=== PATIENT | male | born 1960 | race Caucasian/White ===

== ENCOUNTER 2016-03-22 13:23 | Emergency (ER) | payer OTHER ==
[2016-03-22 14:57] LABS: BASOPHILS 0.3 % (0.0-2.0); EOSINOPHILS 2.1 % (0-7); HEMOGLOBIN 14.8 g/dL (13.5-17.5); IMMATURE GRANULOCYTES 0.5 % (0-5); LYMPHOCYTES 25.9 % (15-50); MCH 33.6 pg (26.0-34.0); MCHC 35.2 g/dL (31.0-37.0); MCV 95.5 fL (80.0-100.0); MEAN PLATELET VOLUME 9.9 fL (7.4-10.4); MONOCYTES 6.3 % (2-11); NEUTROPHILS 64.9 % (40-80); PLATELET COUNT 203 10x3/uL (130-400); RDW 13.1 % (11.5-14.5); WBC 6.3 10x3/uL (4.8-10.8)
[2016-03-22 15:12] LABS: ALBUMIN 3.3 g/dL (3.4-5.0); ALKALINE PHOSPHATASE 52 U/L (46-116); ALT (SGPT) 14 U/L (10-68); BILIRUBIN - TOTAL 0.35 mg/dL (0.2-1.3); CALC OSMOLALITY 281 mosm/kg (275-300); CALCIUM 9.2 mg/dL (8.5-10.1); CARBON DIOXIDE 27.7 mmol/L (21.0-32.0); CHLORIDE - SERUM 106 mmol/L (98-107); GLUCOSE 114 mg/dL (74-106); POTASSIUM - SERUM 3.5 mmol/L (3.5-5.1); PROTEIN - SERUM 6.4 g/dL (6.4-8.2); SODIUM 142 mmol/L (136-145); UREA NITROGEN 7 mg/dL (7-18); eGFR NON AFRICAN AMERICAN 82 mL/min (90-120)
[2016-03-22 15:24] LABS: CHOL - HDL RATIO 6.6 ratio (2.3-4.9); CHOLESTEROL, TOTAL 185 mg/dL (0-200); CKMB 0.6 U/L (0.0-3.6); CREATINE KINASE 35 UL (21-232); HDL CHOLESTEROL 28 mg/dL (32-96); LDL CHOLESTEROL 91 mg/dL (0-100); LDL-HDL RATIO 3.3 ratio (1.5-3.5); TRIGLYCERIDE 332 mg/dL (30-200)
[2016-03-22 15:25] LABS: TROPONIN-I < 0.017 ng/mL (0.000-0.060)
[2016-05-23 22:36] VITALS: BMI 32.5
== END 2016-03-22 17:24 | disposition home or self-care (01) ==
LOC: D.ER 13:23
PROVIDERS: Emergency Medicine
DX: R07.9 Chest pain, unspecified (principal); J44.9 Chronic obstructive pulmonary disease, unspecified; I25.10 Atherosclerotic heart disease of native coronary artery without angina pectoris; M54.5 Low back pain; F32.9 Major depressive disorder, single episode, unspecified; Z85.048 Personal history of other malignant neoplasm of rectum, rectosigmoid junction, and anus; F17.200 Nicotine dependence, unspecified, uncomplicated

== ENCOUNTER 2016-03-25 11:47 | Emergency (ER) | payer OTHER ==
[2016-03-25 12:13] LABS: BASOPHILS 0.2 % (0.0-2.0); EOSINOPHILS 1.4 % (0-7); HEMATOCRIT 46.2 % (42.0-54.0); HEMOGLOBIN 16.1 g/dL (13.5-17.5); IMMATURE GRANULOCYTES 0.6 % (0-5); LYMPHOCYTES 22.5 % (15-50); MCHC 34.8 g/dL (31.0-37.0); MCV 97.7 fL (80.0-100.0); MEAN PLATELET VOLUME 10.2 fL (7.4-10.4); MONOCYTES 5.7 % (2-11); NEUTROPHILS 69.6 % (40-80); PLATELET COUNT 180 10x3/uL (130-400); RBC 4.73 10x6/uL (4.20-6.10); RDW 13.3 % (11.5-14.5); WBC 6.7 10x3/uL (4.8-10.8)
[2016-03-25 12:44] LABS: ALBUMIN 3.5 g/dL (3.4-5.0); ALKALINE PHOSPHATASE 59 U/L (46-116); ALT (SGPT) 16 U/L (10-68); CALC OSMOLALITY 279 mosm/kg (275-300); CALCIUM 8.9 mg/dL (8.5-10.1); CARBON DIOXIDE 27.7 mmol/L (21.0-32.0); CHLORIDE - SERUM 105 mmol/L (98-107); GLUCOSE 133 mg/dL (74-106); PROTEIN - SERUM 6.3 g/dL (6.4-8.2); SODIUM 141 mmol/L (136-145); UREA NITROGEN 5 mg/dL (7-18); eGFR NON AFRICAN AMERICAN 82 mL/min (90-120)
[2016-03-25 12:56] LABS: CKMB 0.5 U/L (0.0-3.6); CREATINE KINASE 48 UL (21-232); TROPONIN-I < 0.017 ng/mL (0.000-0.060)
[2016-05-23 22:36] VITALS: BMI 32.5
== END 2016-03-25 14:39 | disposition home or self-care (01) ==
LOC: D.ER 11:47
PROVIDERS: Emergency Medicine Emergency Medical Services
DX: I20.8 Other forms of angina pectoris (principal); R07.9 Chest pain, unspecified; I25.10 Atherosclerotic heart disease of native coronary artery without angina pectoris; M54.5 Low back pain; J44.9 Chronic obstructive pulmonary disease, unspecified; F32.9 Major depressive disorder, single episode, unspecified; Z85.048 Personal history of other malignant neoplasm of rectum, rectosigmoid junction, and anus

== ENCOUNTER 2016-03-27 13:34 | Emergency (ER) | payer OTHER ==
[2016-03-27 15:35] LABS: ALBUMIN 3.3 g/dL (3.4-5.0); ALKALINE PHOSPHATASE 51 U/L (46-116); ALT (SGPT) 14 U/L (10-68); BILIRUBIN - TOTAL 0.12 mg/dL (0.2-1.3); CALC OSMOLALITY 287 mosm/kg (275-300); CALCIUM 8.7 mg/dL (8.5-10.1); CARBON DIOXIDE 25.1 mmol/L (21.0-32.0); CHLORIDE - SERUM 109 mmol/L (98-107); CHOL - HDL RATIO 5.6 ratio (2.3-4.9); CHOLESTEROL, TOTAL 169 mg/dL (0-200); CKMB 1.9 U/L (0.0-3.6); CREATINE KINASE 55 UL (21-232); CREATININE - SERUM 1.1 mg/dL (0.6-1.3); GLUCOSE 118 mg/dL (74-106); HDL CHOLESTEROL 30 mg/dL (32-96); POTASSIUM - SERUM 4.4 mmol/L (3.5-5.1); PRO BNP 53 pg/mL (0-125); SODIUM 145 mmol/L (136-145); TRIGLYCERIDE 408 mg/dL (30-200); UREA NITROGEN 8 mg/dL (7-18); eGFR NON AFRICAN AMERICAN 73 mL/min (90-120)
[2016-03-27 15:37] LABS: TROPONIN-I < 0.017 ng/mL (0.000-0.060)
[2016-03-27 15:45] LABS: HEMATOCRIT 41.3 % (42.0-54.0); MCH 33.5 pg (26.0-34.0); MCHC 33.9 g/dL (31.0-37.0); MCV 98.8 fL (80.0-100.0); MEAN PLATELET VOLUME 10.1 fL (7.4-10.4); PLATELET COUNT 132 10x3/uL (130-400); RBC 4.18 10x6/uL (4.20-6.10); RDW 13.7 % (11.5-14.5); WBC 5.9 10x3/uL (4.8-10.8)
[2016-03-27 15:46] LABS: BASOPHILS 0.2 % (0.0-2.0); EOSINOPHILS 3.8 % (0-7); IMMATURE GRANULOCYTES 0.7 % (0-5); LYMPHOCYTES 30.5 % (15-50); MONOCYTES 6.6 % (2-11); NEUTROPHILS 58.2 % (40-80)
[2016-05-23 22:36] VITALS: BMI 32.5
== END 2016-03-27 16:45 | disposition left against medical advice (07) ==
LOC: D.ER 13:34
PROVIDERS: Emergency Medicine
DX: R07.9 Chest pain, unspecified (principal); F17.200 Nicotine dependence, unspecified, uncomplicated

== ENCOUNTER 2016-05-23 17:23 | Observation (INO) | payer MEDICAID ==
[~2016-05-23] VITALS: Ht 175.3 cm; Wt 100.0 kg
--- NOTE | ~2016-05-23 | HEMODYNAMI ---
PATIENT:KAREEM PERALTA MEDICAL RECORD: [id number] : 58 [facility] [id number] ADMISSION DATE: 05/23/16 Generatedon:05/24/20169:44 Patient name: KAREEM PERALTA Patient #: [id number] SSN: : 1960 Date of study: 05/24/2016 Page: Of Hemodynamic Procedure Report Patient Data Patient Demographics Procedure consent was obtained First Name: KAREEM Gender: Male Last Name: KATHRYN : 1960 Middle Initial: R Age: 55 year(s) Patient #: [id number] Race: Unknown Additional ID: [id number] Contact details [address]: [address] [place] [address] rd State: [place] City: [place] Zip code: [address] Past Medical History Allergies Allergen Reaction Date Comments Reported Penicillins 05/24/2016 Toradol 05/24/2016 Stadol 05/24/2016 Other allergy 05/24/2016 compazine, reglan, avelox Admission Admission Data Admission Date: 05/23/2016 Admission Time: 19:26 Admit Source: Emergency department Room #: D.2121 Lab Results Lab Result Date: 05/24/2016 Lab Result Time: 0:00 Biochemistry Name Units Result Min Max BUN mg/dl 16 --(---*)-- 7 18 Creatinine mg/dl 1.3 --(---*)-- 0.6 1.3 CBC Name Units Result Min Max Hemoglobin g/dl 15.1 --(-*--)-- 13.5 17.5 Procedure Procedure Types Cath Procedure Diagnostic Procedure LHC LHC w/Coronaries Miscellaneous Procedures Moderate Sedation up to 15 minutes Procedure Description Procedure Date Procedure Date: 05/24/2016 Procedure Start Time: 9:29 Procedure End Time: 9:38 Procedure Staff Name Function Robel Parks MD Performing Physician Usha Bess RT Scrub Ellen Millard RN Nurse Jose Mcmillan RT Monitor Procedure Data Cath Procedure Fluoroscopy Diagnostic fluoroscopy Total fluoroscopy Time: 1.8 time: 1.8 min min Diagnostic fluoroscopy Total fluoroscopy dose: 505 dose: 505 mGy mGy Contrast Material Contrast Material Type Amount (ml) Isovue 300 74 Entry Location Entry Primary Successful Side Size Upsize Upsize Entry Closure Succes sful Closure Location (Fr) 1 (Fr) 2 (Fr) Remarks Device Remarks Femoral Right 5 Fr Exoseal artery Diagnostic catheters Device Type Used For End Catheter Placement Cordis 5Fr JL 4.0 Left Coronary Catheter (MP) Angiography Cordis 5Fr 3DRC Catheter Right Coronary (MP) Angiography Cordis 5Fr Pigtail LV Angiography Catheter (MP) Procedure Complications No complications Procedure Medications Medication Administration Route Dosage Oxygen NC 2 l/min Heparin Flush Bag added to field 2 bags (1000units/500ml NS) Lidocaine 2% added to field 20 Versed I.V. 1 mg Fentanyl I.V. 50 mcg Versed I.V. 1 mg Fentanyl I.V. 50 mcg Hemodynamics Rest HGB: 15.1 (g/dl) Heart Rate: 56 (bpm) Pressure Samples Time Site Value (mmHg) Purpose Heart Use Rate(bpm) 9:35 LV 121/41,51 EDP 61 9:35 AO 121/82(99) Pullback 56 9:35 LV 126/11,60 Pullback 56 Gradients Valve Time Site 1 Site 2 Mean SEP/DFP Peak To Heart Use (mmHg) (sec/min) Peak Rate (mmHg) (bpm) Aortic 9:35 LV AO 0 3 5 56 126/11,60 121/82(99) Calculations Valve P-P Mean Valve Index Valve Source Name Gradient Area Flow (cm2) Aortic 5 0 5 0 Snapshots Pre Cath Intra NCS Post Cath Vital Signs Time Heart Resp SPO2 etCO2 [id number] NIBP (mmHg) Rhythm Pain Sedation Rate (ipm) (%) (mmHg) (mmHg) Status Level (bpm) 9:14:11 54 16 98 0 0 128/83(115) NSR 0 (11) 10(A) , No pain 9:18:22 54 16 95 0 0 127/84(100) NSR 0 (11) 10(A) , No pain 9:22:36 54 16 96 0 0 117/85(105) NSR 0 (11) 10(A) , No pain 9:26:36 55 18 96 0 0 104/82(97) NSR 0 (11) 10(A) , No pain 9:30:40 56 18 96 0 0 123/82(99) NSR 0 (11) 10(A) , No pain 9:34:52 55 19 96 0 0 123/81(109) NSR 0 (11) 9(A) , No pain 9:39:28 56 18 96 0 0 133/78(115) NSR 0 (11) 9(A) , No pain Medications Time Medication Route Dose Verified Delivered Reason Notes Effect iveness by by 9:23:49 Oxygen NC 2 Robel Ellen Per l/min [place] Millard RN physician 9:23:57 Heparin Flush added 2 Robel Robel used for Bag to bags [facility] procedure (1000units/500ml field MD [place] NS) 9:24:10 Lidocaine 2% added 20ml Robel Robel used for [facility] field MD [place] 9:28:59 Versed I.V. 1 mg [address] [facility] Ac Millard RN sedation 9:29:06 Fentanyl I.V. 50 Robel Ellen for mcg KaseyAc Millard RN sedation 9:32:01 Versed I.V. 1 mg Robel Ellen for [place] Millard RN sedation 9:32:04 Fentanyl I.V. 50 Robel Ellen for mcg [place] Freeman KAUR sedation Procedure Log Time Note 8:58:39 Jose Mcmillan RT(R) sent for patient. Start room use. 8:58:41 Time tracking: Call back 8:58:45 Plan of Care:Hemodynamics will remain stable., Cardiac rhythm will remain stable., Comfort level will be maintained., Respiratory function will remain adequate., Patient/ family verbilizes understanding of procedure., Procedure tolerated without complication., Recovers from procedure without complications.. 8:58:54 Admit Source: Emergency department 9:06:53 Patient received from PCU to CCL 1 Alert and oriented. Tansferred to table in Supine position. 9:06:54 Warm blankets applied, and leeann hugger turned on for patient comfort. 9:06:55 Correct patient and procedure confirmed by team. 9:06:56 Signed procedure consent form obtained from patient. 9:06:57 ECG and BP/O2 sat monitors applied to patient. 9:06:58 Full Disclosure recording started 9:13:01 Vital chart was started 9:18:45 Baseline sample Acquired. 9:18:47 Rhythm: sinus rhythm 9:18:53 H&P Date Dictated: 05/24/2016 Within 30 days and on chart.. 9:18:54 Pre-procedure instructions explained to patient. 9:18:55 Pre-op teaching completed and patient verbalized understanding. 9:18:57 Family unavailable. 9:18:59 Patient NPO since Midnight. 9:19:10 Patient allergic to Penicillins 9:19:21 Patient allergic to Toradol 9:19:31 Patient allergic to Stadol 9:19:54 Patient allergic to Other allergycompazine, reglan, avelox 9:19:56 Is the patient allergic to Iodine/contrast media? No. 9:20:12 Is patient on blood thinner?No 9:20:22 Patient diabetic? No. 9:20:44 ----Pre-sedation anethsthesia assessment.---- 9:20:47 Previous problem with sedation/anesthesia? No ? 9:20:49 Snore? Yes 9:20:50 Sleep apnea? No 9:20:52 Deviated septum? No 9:21:08 Opens mouth fully? Yes 9:21:10 Sticks out tongue? Yes 9:21:21 Airway obstruction? Yes emphyzemia 9:21:25 Dentures? Yes out 9:21:37 Pre procedure: right dorsailis pedis pulse 1+ Palpable, but thready & weak; easily obliterated 9:21:42 Patient pain scale 0/10 ?. 9:21:47 IV patent on arrival in left forearm with 0.9% NaCl at 10ml/hr. 9:22:16 Lab Result : BUN 16 mg/dl 9:22:16 Lab Result : Creatinine 1.3 mg/dl 9:22:16 Lab Result : Hemoglobin 15.1 g/dl 9:22:29 Lab results completed and on chart. 9:22:32 Right groin area was prepped with chlora-prep and draped in sterile fashion 9:22:35 Alarms reviewed by R. N. 9:22:35 Sharps counted by scrub and verified by R.N. 9:22:36 Physician paged 9:23:49 Oxygen 2 l/min NC was given by Ellen Millard RN; Per physician; 9::57 Heparin Flush Bag (1000units/500ml NS) 2 bags added to field was given by Robel Parks MD; used for procedure; 9:24:10 Lidocaine 2% 20ml vial added to field was given by Robel Parks MD; used for procedure; 9::25 Zero performed for pressure channel P1 9::34 --------ALL STOP TIME OUT------ ::34 Final Timeout: patient, procedure, and site verified with staff and physician. All members of the team are in agreement. 9:28:37 Right groin site verified by team. 9::40 Physical assessment completed. ASA score P 2 - A patient with mild systemic disease as per Robel Parks MD. 9:28:45 Sedation plan: IV Moderate Sedation Versed, Fentanyl 9::59 Versed 1 mg I.V. was given by Ellen Millard RN; for sedation; 9:29:03 Use device set Femoral Dx 9:29:04 Acist Syringe opened to sterile field. 9:29:04 Bag Decanter opened to sterile field. 9:29:05 Medline Cath Pack opened to sterile field. 9:29:05 Terumo 5Fr Des Arc Sheath opened to sterile field. 9:29:05 St Travis 260cm J .035 wire opened to sterile field. 9:29:06 Fentanyl 50 mcg I.V. was given by Ellen Millard RN; for sedation; 9:29:07 Acist Hand Control opened to sterile field. 9:29:07 Acist Manifold opened to sterile field. 9:29:08 Diagnostic Infinity 5Fr Multipack catheter opened to sterile field. 9:29:08 Tegaderm 4 x 4 opened to sterile field. 9:29:25 Procedure started. 9:29:36 Local anesthetic to right femoral artery with Lidocaine 2% by Robel Parks MD.INITIAL ACCESS ONLY 9:29:46 A 5 Fr sheath was inserted into the Right Femoral artery 9:30:12 A Cordis 5Fr JL 4.0 Catheter () was advanced over the wire and used for Left Coronary Angiography. 9:30:57 LCA angiography performed. 9:32:01 Versed 1 mg I.V. was given by Ellen Millard RN; for sedation; 9:32:04 Fentanyl 50 mcg I.V. was given by Ellen Millard RN; for sedation; 9:32:29 Catheter removed. 9:32:34 A Cordis 5Fr 3DRC Catheter (MP) was advanced over the wire and used for Right Coronary Angiography. 9:33:57 RCA angiography performed. 9:33:59 Catheter removed. 9:34:06 A Cordis 5Fr Pigtail Catheter (MP) was advanced over the wire and used for LV Angiography. 9:34:10 LV angiography performed. 9:34:13 LV gram done using BRUCE 9:34:15 LV hemodynamics recorded. 9:34:20 Injector settings: Ml/sec: 10, Volume: 20, 9:35:43 EF : 55 % 9:35:53 Catheter removed. 9:36:01 Contrast amount:Isovue 300 74ml. 9:36:09 Sheath removed intact; hemostasis achieved with Exoseal to the Right Femoral artery. 9:36:11 Procedure ended.(Physican Out) 9:36:20 Fluoroscopy time 01.80 minutes. 9:36:25 Fluoroscopy dose: 505 mGy 9:36:25 Flurop Dose total: 505 9:36:26 Sharps counted by scrub and verified by R.N. 9:36:28 Insertion/operative site no bleeding no hematoma. 9:36:31 Post-op/insertion site Right Femoral artery dressed using a 4 x 4 and Tegaderm. 9:36:34 Post right femoral artery:stable 9:36:36 Post Procedure Pulses reassessed and unchanged 9:37:04 Post procedure: right dorsailis pedis pulse 1+ Palpable, but thready & weak; easily obliterated. 9:37:07 Post procedure rhythm: sinus rhythm 9:37:09 Post procedure instruction explained to patient.Patient verbalizes understanding. 9:37:37 Procedure type changed to Cath procedure, Diagnostic procedure, LHC, LHC w/Coronaries, Miscellaneous Procedures, Moderate Sedation up to 15 minutes 9:37:40 Procedure and supply charges have been captured, reviewed, submitted and are correct. 9:37:45 Procedure Complication : No complications 9:38:00 Cordis 5Fr Exoseal opened to sterile field. 9:38:03 Vital chart was stopped 9:38:03 See physician's report for complete and final results. 9:38:04 Report given to PCU. 9:38:08 Patient transfered to PCU with Bed. 9:38:10 Procedure ended. 9:38:10 Full Disclosure recording stopped 9:38:13 End room use (Document Last) Device Usage Item Name Manufacture Quantity Catalog Hospital Part Current Minimal Lo t# / Number Charge Number Stock Stock Serial# Code Acist Acist 1 21774 [id number] 326056 754260 20 Syringe Medical Systems Inc Bag Microtek 1 2002S 200972 71956 965236 5 Decanter Medical Inc. Medline Cardinal 1 [id number] 062638 45608 106514 5 Cath Pack Health Terumo 5Fr Terumo 1 [id number] 471848 242518 611488 [address] [facility] Travis 1 475472 370297 611694 882008 30 260cm J .035 wire Acist Hand Acist 1 14143 925458 636931 790993 5 Control Medical Systems Inc Acist Acist 1 16644 998023 797459 365939 5 Manifold Medical Systems Inc Diagnostic Cardinal 1 [id number] 613068 27830 579033 30 Infinity Health 5Fr Multipack catheter Tegaderm 4 3M 1 1626W 677911 667762 769322 5 x 4 Cordis 5Fr Cardinal 1 956185 5 JL 4.0 Health Catheter (MP) Cordis 5Fr Cardinal 1 [id number] 5 3DRC Health Catheter (MP) Cordis 5Fr Cardinal 1 693355 5 Pigtail Health Catheter (MP) Cordis 5Fr Cardinal 1 EX500 534233 537416 223319 10 [employer] Health Signature Audit Rydal Stage Time Signature Unsigned Intra-Procedure 05/24/2016 Jose Mcmillan 9:44:26 AM RT(R) Signatures Monitor : Jose Mcmillan RT Signature : Date : Time : [facility] [address] [place] [address]
[2016-05-23 18:25] LABS: BASOPHILS 0.2 % (0.0-2.0); EOSINOPHILS 1.2 % (0-7); HEMATOCRIT 42.9 % (42.0-54.0); HEMOGLOBIN 15.1 g/dL (13.5-17.5); IMMATURE GRANULOCYTES 0.4 % (0-5); LYMPHOCYTES 25.8 % (15-50); MCH 35.1 pg (26.0-34.0); MCHC 35.2 g/dL (31.0-37.0); MCV 99.8 fL (80.0-100.0); MEAN PLATELET VOLUME 10.5 fL (7.4-10.4); MONOCYTES 6.1 % (2-11); NEUTROPHILS 66.3 % (40-80); PLATELET COUNT 157 10x3/uL (130-400); RDW 13.9 % (11.5-14.5); WBC 9.1 10x3/uL (4.8-10.8)
[2016-05-23 18:37] LABS: ALBUMIN 3.3 g/dL (3.4-5.0); ALKALINE PHOSPHATASE 48 U/L (46-116); ALT (SGPT) 24 U/L (10-68); BILIRUBIN - TOTAL 0.33 mg/dL (0.2-1.3); CALC OSMOLALITY 286 mosm/kg (275-300); CALCIUM 8.7 mg/dL (8.5-10.1); CARBON DIOXIDE 32.3 mmol/L (21.0-32.0); CHLORIDE - SERUM 104 mmol/L (98-107); CREATININE - SERUM 1.3 mg/dL (0.6-1.3); GLUCOSE 114 mg/dL (74-106); POTASSIUM - SERUM 3.7 mmol/L (3.5-5.1); PROTEIN - SERUM 6.2 g/dL (6.4-8.2); SODIUM 143 mmol/L (136-145); UREA NITROGEN 16 mg/dL (7-18); eGFR NON AFRICAN AMERICAN 61 mL/min (90-120)
[2016-05-23 18:48] LABS: CKMB 1.5 U/L (0.0-3.6); CREATINE KINASE 59 UL (21-232)
[2016-05-23 18:51] LABS: TROPONIN-I < 0.017 ng/mL (0.000-0.060)
[2016-05-23] MEDS ORDERED: PROAIR HFA8.5 GM INH (21:44)
[2016-05-23] MEDS ORDERED: PERCOCET 5-3251 TAB PO (21:45)
[2016-05-23] MEDS ORDERED: CELEXA40 MG PO (21:46)
[2016-05-23] MEDS ORDERED: CATAPRES0.3 MG PO (21:46)
[2016-05-23] MEDS ORDERED: XANAX0.5 MG PO (21:46)
[2016-05-23] MEDS ORDERED: HYDROCHLOROTHIA25 MG PO (21:46)
[2016-05-23] MEDS ORDERED: K-TAB10 MEQ PO (21:47)
[2016-05-23] MEDS ORDERED: CARAFATE1 G PO (21:47)
[2016-05-23] MEDS ORDERED: NORVASC5 MG PO (21:47)
[2016-05-23] MEDS ORDERED: DEPAKOTE500 MG PO ×2 (21:48)
[2016-05-23 22:36] VITALS: BP 146/72; Ht 175.3 cm; Wt 100.0 kg
[2016-05-24 00:30] VITALS: BP 101/62; BP 151/73
[2016-05-24 01:24] LABS: CKMB 1.2 U/L (0.0-3.6); CREATINE KINASE 47 UL (21-232); TROPONIN-I < 0.017 ng/mL (0.000-0.060)
--- NOTE | 2016-05-24 02:15 | NUR ---
PT AMBULATING IN HALLS, VERY TALKATIVE WITH STAFF. STATES FEELING HUNGRY AND WANTING TO GO TO THE VENDING MACHINE FOR A SNACK. EXPLAINED TO THE PT HE IS NPO FOR HEART CATH LATER THIS MORNING, PT VERBALIZES UNDERSTANDING BUT REPORTS HE IS EATING ANYWAY. STATES THE "WORST THAT CAN HAPPEN IS I WILL BE HERE AN EXTRA DAY".
[2016-05-24 04:30] VITALS: BP 131/77; BP 178/68
[2016-05-24 06:33] LABS: CKMB 1.6 U/L (0.0-3.6); CREATINE KINASE 45 UL (21-232)
[2016-05-24 06:34] LABS: TROPONIN-I < 0.017 ng/mL (0.000-0.060)
[2016-05-24 08:14] VITALS: BP 93/61
--- NOTE | 2016-05-24 09:00 | NUR ---
PRE-OPS GIVEN. TO ENTERPRISE INFRASTRUCTURE ARCHITECT BY BED.
--- NOTE | 2016-05-24 09:58 | NUR ---
BACK FROM REGIONAL PROPERTY MANAGER. VS WNL. RIGHT GROIN STABLE WITHOUT BLEEDING OR HEMATOMA NOTED. WILL MONITOR.
--- NOTE | 2016-05-24 11:00 | NUR ---
SPOKE TO DR. NAILS. IF DRIVING SELF HOME, MAY DC 8 HRS POST PROCEDURE.
[2016-05-24] MEDS ORDERED: HYDROCODONE-APA1 TAB PO (11:39)
[2016-05-24 11:44] VITALS: BP 119/68
--- NOTE | 2016-05-24 11:56 | NUR ---
BED REST UP. GROIN STABLE.
--- NOTE | 2016-05-24 14:26 | NUR ---
WILL HOLD DC TILL AM PER DR. NORRIS.
[2016-05-24 15:27] VITALS: BP 107/69
--- NOTE | 2016-05-24 19:15 | NUR ---
INITIAL ROUNDS MADE. PT LYING IN BED WATCHING TV. REQUESTING I CALL THE DOCTOR ASKING FOR MORPHINE BACK AGAIN. I DISCUSSED PROTOCOL WITH PT AND THE NORCO PRN ORDER FOR PAIN. PT REQUESTS NORCO AND GIVEN ORDERED PRN.
[2016-05-24 20:30] VITALS: BP 119/72
--- NOTE | 2016-05-24 21:25 | NUR ---
PT AGAIN REQUESTING MORPHINE SHOT AND WHEN TOLD UNABLE TO GIVE, MED NOT ORDERED FOR HIM, PT AMBULATES DOWNSTAIRS.
--- NOTE | 2016-05-24 21:39 | NUR ---
PT RETURNS TO UNIT, ASKING FOR HIS REG HOME MEDS. EXPLAINED TO PT I HAVE NO ORDER FOR HOME MEDS AND THE PLAN FOR DC EARLY AM. HE DEMANDING BLOOD PRESSURE MED. HIS BLOOD PRESSURE CURRENTLY BELOW PARAMETERS FOR BP MED. I EXPLAINED THIS TO HIM AND HE GETS ANGRY. STARTS BACK TO HIS ROOM, STATES "I WILL NEVER COME BACK TO THIS HOSPITAL" AND SLAMS THE DOOR TO HIS ROOM.
--- NOTE | 2016-05-25 00:27 | NUR ---
OFFICE SYSTEM ANALYST AT BEDSIDE FOR VS, NEEDS ADDRESSED. CALL LIGHT IN REACH. WILL CONT TO MONITOR.
[2016-05-25 00:30] VITALS: BP 147/74
[2016-05-25 04:45] VITALS: BP 133/75
--- NOTE | 2016-05-25 07:40 | NUR ---
REVIEWED DISCHARGE INSTRUCTIONS WITH PT STATES UNDERSTANDING COPY GIVEN TO PT WRITTEN PRESCRIPTION FOR NORCO GIVEN TO PT SALINE LOCK DCD TO LFA WITH 22 GA IV CATH INTACT NO REDNESS OR EDEMA NOTED TO SITE PT DISCHARGED HOME IN STABLE CONDITION WITH ALL PERSONAL BELONGINGS VIA W/C
--- NOTE | 2016-05-25 08:24 | OP ---
PATIENT NAME: KAREEM PERALTA MEDICAL RECORD: [id number] :58 LOCATION:D.M2 D.2121 ADMISSION DATE:05/23/16 SURGEON: JAYESH NAILS MD DATE OF OPERATION: 05/24/2016 Catheterization Report PROCEDURE: Left heart catheterization, selective coronary angiography, right femoral artery approach. CATHETERS: A 5-Azeri sheath, 5/4 left and right Lobo, 5/4 pig. The procedure was well tolerated and the patient returned to land. Sheath was removed. ExoSeal device placed. FINDINGS: Left ventriculography in 30-degree BRUCE view: Normal wall motion and normal systolic function. CORONARY ANATOMY: Left main: Left main is free of disease. LAD: Free of disease in the diagonal system. CIRCUMFLEX: Free of disease in the marginal system. RIGHT CORONARY ARTERY: Dominant artery, gives rise to PDA, free of disease. IMPRESSION: Normal systolic function. Normal coronary anatomy. TRANSINT:[id number] Voice Confirmation ID: [id number] DOCUMENT ID: [id number] JAYESH NAILS MD at 0824 CC: [id number] DICTATION DATE: 05/24/16 1007 SURGICAL SERVICES DIRECTOR: 05/24/16 1038 ADM IN [facility] [address] [place] [address]
--- NOTE | 2016-05-25 08:24 | HP ---
PATIENT: KAREEM PERALTA MEDICAL RECORD: [id number] ACCOUNT: [id number] LOCATION:[address] : [birth year] ADMISSION DATE: 05/23/16 HISTORY AND PHYSICAL EXAMINATION HISTORY OF PRESENT ILLNESS: A 55-year-old gentleman with by his report, known history of coronary artery disease, status post ID in the past times 2, travelling from out of town. He has no history of stents or balloon angioplasty, other intervention ____ ID. He has been having chest pain over the last 2 days, waxing and waning course, intermittent ____ nausea and diaphoresis. We are asked to see his concerning his cardiovascular status. PAST MEDICAL HISTORY: Includes: 1. History of hypertension. 2. Hyperlipidemia. 3. Seizure disorder. MEDICATIONS: Include: Albuterol 2 puffs q.4, amlodipine 5 q. day, Klonopin 0.3 b.i.d., Xanax 0.5, Celexa 40 q. day, Depakote 500 in the morning, ____ in the evening, Percocet 5/325, hydrochlorothiazide, Carafate 1 gram a.c. and h.s. ALLERGIES: COMPAZINE, STADOL, AND REGLAN. SOCIAL HISTORY: He smokes a pack a day. Easily takes care of his ADLs. No set exercise program. REVIEW OF SYSTEMS: The patient reports easy bruising but reports no swollen glands. The patient reports no fever, no night sweats, no significant weight gain, no significant weight loss. No significant exercise tolerance. The patient reports no dry eyes, no irritation, no vision change. Patient reports no difficulty hearing and no ear pain. Patient reports no frequent nose bleeds or nose and sinus problems. Patient reports on arm pain on exertion. No shortness of breath while lying down. No history of heart murmur. Patient reports no cough, no wheezing or coughing up blood. Patient reports no abdominal pain, no vomiting. Normal appetite. No diarrhea and not vomiting blood. No nausea and no constipation. Patient reports no incontinence. No difficulty urinating. No hematuria. No increased frequency. Patient reports no muscle aches. No weakness, no arthralgias, no back pain. No swelling of the extremities. Patient reports no abnormal mole, no jaundice, no rashes. Reports no loss of consciousness. No weakness and no numbness. No seizures, dizziness, or headaches. The patient reports no depression, no sleep disturbance, feeling safe in a relationship and no alcohol abuse. Patient reports on fatigue. Reports no runny nose or sinus pressure. No itching, no hives, and no frequent sneezing. PHYSICAL EXAMINATION: GENERAL: Middle-aged gentleman in no acute distress. VITAL SIGNS: Blood pressure 93/61, pulse 56 and regular. HEENT: Normocephalic and atraumatic. NECK: No JVD or bruit. HEART: Regular. LUNGS: Wolf clear. ABDOMEN: Soft and nontender. EXTREMITIES: Pulses 2+ with no edema. HISTORY AND PHYSICAL [id number] KAREEM PERALTA DIAGNOSTIC DATA: ECG without acute change. IMPRESSION: Acute coronary syndrome, historically known myocardial infarction in the past. PLAN: For angiography, intervention based on above. TRANSINT:[id number] Voice Confirmation ID: [id number] DOCUMENT ID: [id number] JAYESH NAILS MD at 0824 CC: [id number] DICTATION DATE: 05/24/16918 EYE DROPPER ASSEMBLER: 05/24/16 1001 ADM IN [facility] [address] [place] [address]
== END 2016-05-25 07:40 | disposition home or self-care (01) ==
LOC: D.ER 17:23 → D.M2 19:26 → OBSVTIME 19:26 → D.M2 19:26
PROVIDERS: Emergency Medicine; ADMIT Internal Medicine Interventional Cardiology
DX: I24.9 Acute ischemic heart disease, unspecified (principal); I25.2 Old myocardial infarction; I10 Essential (primary) hypertension; E78.5 Hyperlipidemia, unspecified; G40.909 Epilepsy, unspecified, not intractable, without status epilepticus

== ENCOUNTER 2016-06-30 02:34 | Observation (INO) | payer MEDICAID ==
[~2016-06-30] VITALS: Ht 175.3 cm; Wt 102.5 kg
[~2016-06-30 02:34] MED LIST: CARAFATE1 G PO; CATAPRES0.3 MG PO; CELEXA40 MG PO; DEPAKOTE500 MG PO; HYDROCHLOROTHIA25 MG PO; HYDROCODONE-APA1 TAB PO; K-TAB10 MEQ PO; NORVASC5 MG PO; PERCOCET 5-3251 TAB PO; PROAIR HFA8.5 GM INH; XANAX0.5 MG PO
[2016-06-30 04:00] VITALS: BP 126/82
--- NOTE | 2016-06-30 04:47 | NUR ---
RECIEVED TO ROOM [address] [facility] VIA EMS. PT ALERT AND ORIENTED. 02 AT 2 LITER VIA NC. IV TO LEFT AC WITH HEPARIN DRIP AT 10 CC/HR. SITE CLEAN AND DRY. PT ASKING FOR SOMETHING TO DRINK, 240 CC CANNED SODA GIVEN AT PT REQUEST. PT ALSO ASKING FOR PAIN MEDICATION, INFORMED PT THAT I WILL HAVE TO CALL DR NAILS FOR FURTHER ORDERS, PT STTED UNDERSTANDING. PLACED ON TELEMETRY, 86 SR, VITALS OBTAINED AND CURRENTLY STABLE. WILL CONT TO MONITOR.
--- NOTE | 2016-06-30 05:15 | NUR ---
MORPHINE 8 MG AND ZOFRAN 4 MG GIVEN FOR C/O PAIN AND NAUSEA.
--- NOTE | 2016-06-30 05:31 | NUR ---
SPOKE WITH DR NAILS, ORDERS GIVEN TO DC HEPARIN DRIP AND PLACE ON ENROLLMENT ELIGIBILITY REPRESENTATIVE SCHEDULE FOR TODAY AT 1300, NOTIFIED MT SUZANNE. ORDERS ALSO RECIEVED FOR PAIN AND NUASEA MEDICATION. WILL CONT TO MONITOR.
[2016-06-30 05:37] VITALS: BP 126/82; Ht 175.3 cm; Wt 102.5 kg
[2016-06-30 06:22] LABS: ANION GAP 13.1 mmol/L (8-16); CALCIUM 8.6 mg/dL (8.5-10.1); CARBON DIOXIDE 28.3 mmol/L (21.0-32.0); CREATININE - SERUM 1.7 mg/dL (0.6-1.3); POTASSIUM - SERUM 3.4 mmol/L (3.5-5.1)
--- NOTE | 2016-06-30 06:35 | NUR ---
AMBULATING IN [place], GAIT STEADY.
[2016-06-30 07:08] LABS: BASOPHILS 0.3 % (0.0-2.0); EOSINOPHILS 3.6 % (0-7); HEMATOCRIT 47.4 % (42.0-54.0); HEMOGLOBIN 16.5 g/dL (13.5-17.5); IMMATURE GRANULOCYTES 0.1 % (0-5); MCH 34.4 pg (26.0-34.0); MCHC 34.8 g/dL (31.0-37.0); MCV 98.8 fL (80.0-100.0); PLATELET COUNT 147 10x3/uL (130-400); RDW 12.9 % (11.5-14.5); WBC 7.2 10x3/uL (4.8-10.8)
[2016-06-30 07:47] VITALS: BP 110/69
--- NOTE | 2016-06-30 10:05 | NUR ---
IV AND TELEMETRY DCD. DC PLANS GIVEN. UNDERSTANDING VOICED. LEAVING HOSP WITH BROTHER.
--- NOTE | 2016-07-01 12:11 | DS ---
PATIENT:KAREEM PERALTA :58 MEDICAL RECORD: [id number] DISCHARGE SUMMARY ADMISSION DATE: 06/30/16 DISCHARGE DATE: 06/30/16 HOSPITAL COURSE: A 55-year-old gentleman with a history of chest pain, who was actually seen last month and underwent diagnostic angiography, which showed no evidence of obstructive coronary artery disease, transferred from [place] with chest pain, ____ enzymes were negative. Films were reviewed, ECG is normal. No evidence of acute thrombosis. He does have a history of COPD with wheezing and tightness, suspect better demand ischemia for elevation in cardiac enzymes. No role for intervention. A repeat angiography in the near future. Give him 1 dose of steroid, 1 dose of IV antibiotics, discharged home in good condition. FOLLOWUP: Will be with his regular luster repairer in [place]. ACTIVITY: As tolerated. DIET: AHA diet. TRANSINT:[id number] Voice Confirmation ID: [id number] DOCUMENT ID: [id number] JAYESH NAILS MD at 1211 CC: [id number] DICTATION DATE: 06/30/16 08 JAVA APPLICATION ENGINEER: 06/30/16 211 DIS IN 06/30/16 [facility] [address] [place] [address]
== END 2016-06-30 10:06 | disposition home or self-care (01) ==
LOC: D.M2 02:34 → OBSVTIME 04:30 → D.M2 10:06
PROVIDERS: ADMIT Internal Medicine Interventional Cardiology
DX: R07.9 Chest pain, unspecified (principal); J44.9 Chronic obstructive pulmonary disease, unspecified

== ENCOUNTER 2016-12-18 14:32 | Emergency (ER) | payer MEDICAID ==
[2016-06-30 05:37] VITALS: BMI 33.4
[2016-12-18 15:30] LABS: BASOPHILS 0.2 % (0-2); EOSINOPHILS 4.6 % (0-7); HEMATOCRIT 41.9 % (42.0-54.0); HEMOGLOBIN 15.1 g/dL (13.5-17.5); IMMATURE GRANULOCYTES 0.3 % (0-5); MCH 35.6 pg (26.0-34.0); MCV 98.8 fL (80.0-100.0); MEAN PLATELET VOLUME 11.2 fL (7.4-10.4); MONOCYTES 7.1 % (2-11); NEUTROPHILS 66.8 % (40-80); RBC 4.24 10x6/uL (4.20-6.10); RDW 13.5 % (11.5-14.5); WBC 6.5 10x3/uL (4.8-10.8)
[2016-12-18 15:35] LABS: PLATELET COUNT 186 10x3/uL (130-400)
[2016-12-18 15:56] LABS: ALBUMIN 3.2 g/dL (3.4-5.0); ALKALINE PHOSPHATASE 67 U/L (46-116); ALT (SGPT) 13 U/L (10-68); BILIRUBIN - TOTAL 0.21 mg/dL (0.2-1.3); CALC OSMOLALITY 283 mosm/kg (275-300); CALCIUM 9.2 mg/dL (8.5-10.1); CARBON DIOXIDE 31.4 mmol/L (21.0-32.0); CHLORIDE - SERUM 104 mmol/L (98-107); CREATININE - SERUM 1.4 mg/dL (0.6-1.3); POTASSIUM - SERUM 3.9 mmol/L (3.5-5.1); PROTEIN - SERUM 6.4 g/dL (6.4-8.2); SODIUM 141 mmol/L (136-145); UREA NITROGEN 18 mg/dL (7-18); eGFR NON AFRICAN AMERICAN 55 mL/min (90-120)
[2016-12-18 15:59] LABS: GLUCOSE 113 mg/dL (74-106)
[2016-12-18 16:08] LABS: CKMB 2.7 U/L (0.0-3.6); CREATINE KINASE 101 UL (21-232)
[2016-12-18 16:09] LABS: TROPONIN-I < 0.017 ng/mL (0.000-0.060)
== END 2016-12-18 16:53 | disposition home or self-care (01) ==
LOC: D.ER 14:32
PROVIDERS: Emergency Medicine
DX: R07.89 Other chest pain (principal); F17.200 Nicotine dependence, unspecified, uncomplicated; J44.9 Chronic obstructive pulmonary disease, unspecified

== ENCOUNTER 2018-12-20 21:49 | Observation (INO) | payer MEDICAID ==
[~2018-12-20] VITALS: Ht 175.3 cm; Wt 107.0 kg
[2018-12-20 22:33] LABS: BASOPHILS 0.1 % (0-2); EOSINOPHILS 3.3 % (0-7); IMMATURE GRANULOCYTES 0.1 % (0-5); LYMPHOCYTES 24.8 % (15-50); MCH 34.9 pg (26.0-34.0); MCHC 35.7 g/dL (31.0-37.0); MCV 97.7 fL (80.0-100.0); MEAN PLATELET VOLUME 10.3 fL (7.4-10.4); MONOCYTES 6.6 % (2-11); NEUTROPHILS 65.1 % (40-80); PLATELET COUNT 192 10x3/uL (130-400); RDW 12.8 % (11.5-14.5); WBC 7.3 10x3/uL (4.8-10.8)
[2018-12-20 22:46] LABS: APTT 32.7 SECONDS (22.8-39.4); INR 1.06 (0.85-1.17); PROTIME 13.3 SECONDS (11.6-15.0)
[2018-12-20 22:48] VITALS: BP 156/64
[2018-12-20 22:57] LABS: ALBUMIN 3.7 g/dL (3.4-5.0); ALKALINE PHOSPHATASE 67 U/L (46-116); ALT (SGPT) 10 U/L (10-68); BILIRUBIN - TOTAL 0.27 mg/dL (0.2-1.3); CALC OSMOLALITY 282 mosm/kg (275-300); CALCIUM 8.5 mg/dL (8.5-10.1); CARBON DIOXIDE 30.5 mmol/L (21.0-32.0); CHLORIDE - SERUM 104 mmol/L (98-107); CREATININE - SERUM 1.4 mg/dL (0.6-1.3); GLUCOSE 123 mg/dL (74-106); POTASSIUM - SERUM 3.5 mmol/L (3.5-5.1); PROTEIN - SERUM 6.7 g/dL (6.4-8.2); SODIUM 141 mmol/L (136-145); UREA NITROGEN 16 mg/dL (7-18); eGFR NON AFRICAN AMERICAN 55 mL/min (90-120)
[2018-12-20 23:13] LABS: CKMB 2.1 U/L (0.0-3.6); CREATINE KINASE 79 UL (21-232); MAGNESIUM - SERUM 1.8 mg/dL (1.8-2.4); TROPONIN-I < 0.017 ng/mL (0.000-0.060)
--- NOTE | 2018-12-21 00:38 | NUR ---
PT ARRIVED TO FLOOR VIA WHEELCHAIR WITH ER NURSE JENNIFER. PT IS ALERT AND ORIENTED X4. PT HAS 2L OF O2NC. PT EATING SANDWHICH AT THIS TIME. PT PLACED ON TELEMETRY. PT IS UP ADLIB W/O ANY FURTHER COMPLAINTS OF PAIN OR NEEDS. BED IS IN LOW POSITION AND CALL LIGHT WITHIN REACH. WILL CONTINUE TO MONITOR.
[2018-12-21] MEDS ORDERED: ZOLOFT100 MG PO (00:55)
[2018-12-21] MEDS ORDERED: TOPROL XL25 MG (00:56)
[2018-12-21] MEDS ORDERED: NEURONTIN600 MG PO (00:57)
[2018-12-21] MEDS ORDERED: PLAVIX75 MG PO (00:57)
[2018-12-21] MEDS ORDERED: BAYER CHEWABLE81 MG PO (00:58)
[2018-12-21 01:43] VITALS: BP 142/80; BMI 34.9
--- NOTE | 2018-12-21 02:06 | NUR ---
PT EATING TERE CRAKERS AND MILK. ADVISED PT TO NOT EAT OR DRINK ANYMORE. PT AGREED. WILL CONTINUE TO MONITOR.
[2018-12-21 04:00] VITALS: BP 150/71
[2018-12-21 05:19] LABS: BASOPHILS 0.2 % (0-2); EOSINOPHILS 3.9 % (0-7); HEMATOCRIT 40.8 % (42.0-54.0); IMMATURE GRANULOCYTES 0.2 % (0-5); LYMPHOCYTES 26.1 % (15-50); MCH 33.8 pg (26.0-34.0); MCHC 34.3 g/dL (31.0-37.0); MCV 98.6 fL (80.0-100.0); MEAN PLATELET VOLUME 10.8 fL (7.4-10.4); MONOCYTES 8.2 % (2-11); NEUTROPHILS 61.4 % (40-80); PLATELET COUNT 157 10x3/uL (130-400); RBC 4.14 10x6/uL (4.20-6.10); RDW 12.9 % (11.5-14.5); WBC 6.1 10x3/uL (4.8-10.8)
[2018-12-21 05:51] LABS: CALC OSMOLALITY 290 mosm/kg (275-300); CALCIUM 8.5 mg/dL (8.5-10.1); CARBON DIOXIDE 33.5 mmol/L (21.0-32.0); CHLORIDE - SERUM 107 mmol/L (98-107); CREATININE - SERUM 1.3 mg/dL (0.6-1.3); GLUCOSE 110 mg/dL (74-106); POTASSIUM - SERUM 3.5 mmol/L (3.5-5.1); SODIUM 145 mmol/L (136-145); UREA NITROGEN 15 mg/dL (7-18); eGFR NON AFRICAN AMERICAN 60 mL/min (90-120)
[2018-12-21 05:55] LABS: TROPONIN-I < 0.017 ng/mL (0.000-0.060)
--- NOTE | 2018-12-21 07:25 | NUR ---
GAVE 4MG OF MORHINE FOR PAIN LEVEL OF 8/10. PT RESTING COMFORTABLY IN BED, A/O X4, RESP EVEN AND NONLABORED ON RA. PT DENIES ANY OTHER NEEDS AT THIS TIME. CALL LIGHT IN REACH, NAD NOTED, WILL CONTINUE TO MONITOR.
[2018-12-21 08:00] VITALS: BP 157/64
--- NOTE | 2018-12-21 08:33 | NUR ---
PT REFUSED NICOTINE PATCH, STATED " I ALREADY QUIT SMOKING". RATIONAL FOR SCDS WAS EXPLAINED TO PT, PT REFUSED TO WEAR SCDS AT THIS TIME.
--- NOTE | 2018-12-21 11:20 | NUR ---
GAVE NORCO WITH SIP OF WATER FOR PAIN LEVEL OF 8/10. PT DENIES ANY OTHER NEEDS AT THIS TIME. CALL LIGHT IN REACH, NAD NOTED, WILL CONTINUE TO MONITOR.
[2018-12-21 12:06] VITALS: Ht 175.3 cm; Wt 107.0 kg
[2018-12-21 13:59] VITALS: BP 127/73
--- NOTE | 2018-12-21 16:20 | NUR ---
PT WAS ON 2L NC. REMOVED TO SEE IF PT NEEDED O2. REMOVED O2 AND AFTER 10MIN RECHECKED PT;S O2 AND IT WAS 94% ON RA.
--- NOTE | 2018-12-21 16:39 | NUR ---
PROVIDED VERBAL AND WRITTEN DISCHARGE TEACHING TO PT, WHO VERBALIZED UNDERSTANDING REGARDING TEACHING. D/C LT FA IV WITH CATHETER TIP INTACT. PT REFUSED WHEELCHAIR, LEFT UNIT VIA AMBULATORY WITH ALL BELONGINGS, NAD NOTED.
--- NOTE | 2018-12-29 13:30 | DS ---
PATIENT:KAREEM PERALTA :58 MEDICAL RECORD: [id number] DISCHARGE SUMMARY ADMISSION DATE: 12/20/18 DISCHARGE DATE: 12/21/18 DISCHARGE DIAGNOSES: 1. Chest pain. 2. Coronary artery disease. 3. Previous PTCA and stent. 4. Hypertension. 5. Hyperlipidemia. HISTORY AND HOSPITAL COURSE: Mr. Peralta presents with chest pain. No EKG changes. Normal troponin. Underwent nuclear stress testing and this was normal as well with no ischemic burden. Chest pain is most likely musculoskeletal. At this time, would continue his current cardiac medications. Follow up with [facility] 1 month. He will call if the chest pain worsens. TRANSINT:[id number] Voice Confirmation ID: [id number] DOCUMENT ID: [id number] LARS BOYD MD at 1330 CC: [id number] DICTATION DATE: 12/21/18 1548 VIDEO SOFTWARE ENGINEER: 12/22/18 0709 DIS IN 12/21/18 [address] [place] [address]
--- NOTE | 2018-12-29 13:30 | EC ---
PATIENT:KAREEM PERALTA DATE OF SERVICE: 12/20/18 SEX: M MEDICAL RECORD: [id number] DATE OF : 58 LOCATION:D.M2 D.211 AGE OF PATIENT: 58 ADMISSION DATE: 12/20/18 REFERRING PHYSICIAN: INTERPRETING PHYSICIAN: LARS CHAIDEZ MD ECHOCARDIOGRAM REPORT ECHO CHARGES 4 ECHO COMPLETE Date: 12/21/18 CLINICAL DIAGNOSIS: CHEST PAIN, SOB ECHOCARDIOGRAPHIC MEASUREMENTS (adult normal given) AC root (d.<3.7cm) 3.9 cm LV Septum d (<1.2 cm> 1.6 cm Valve Excursion 1.6 cm LV Septum (systole) 1.8 cm Left Atria (s.<4.0cm> 3.9 cm LVPW d(<1.2cm) 1.5 cm RV (d.<2.3cm) 3.6 cm LVPW (sytole) 1.8 cm LV diastole(<5.6CM) 3.3 cm MV E-F(>70mm/sec) cm LV systole 2.4 cm LVOT Diameter 2.4 cm MV exc.(>10mm) cm Est.ejection fraction (50-75%) % DOPPLER: LVIT cm/sec A 69.0 cm/sec E 87.0 cm/sec LA cm/sec RVSP 17 mmHg LVOT 93 cm/sec AOP1/2T m/s Asc. Ao 104 cm/sec RVOT cm/sec RA cm/sec PA cm/sec AV Gradient Peak 4.35 mmHg AV Mean 2.03 mmHg AV Area 3.7 cm MV Gradient Peak 2.93 mmHg MV Mean 0.97 mmHg MV Area cm COMMENTS: Industrial Locomotive Operator: Patrick BARRETT Corporate Law Assistant: 1 Dr. Chaidez TAPE# PACS Pericardial Effusion N DATE OF SERVICE: 12/21/2018 FINDINGS: 1. Left ventricular chamber size is within normal limits. Left ventricular systolic function is normal. Overall ejection fraction estimated at 55% to 60%. 2. Left atrium, right atrium, and right ventricular chamber sizes are within normal limits. 3. Valvular structures have normal structure and motion. 4. Doppler interrogation reveals no significant valvular insufficiency or stenosis and pulmonary systolic pressure is normal, estimated at 16 mmHg. ECHOCARDIOGRAM REPORT [id number] KAREEM PERALTA 5. No evidence of pericardial effusion or left ventricular thrombus. TRANSINT:[id number] Voice Confirmation ID: [id number] DOCUMENT ID: [id number] LARS CHAIDEZ MD at 1330 CC: [id number] DICTATION DATE: 12/21/18 1215 WHITE GOODS APPLIANCE TECH: 12/21/18 1240 DIS IN 12/21/18 [facility] [address] [id number]
--- NOTE | 2018-12-29 13:30 | ST ---
PATIENT:KAREEM PERALTA MEDICAL RECORD: [id number] SEX: M [facility] ORDER #: ADMISSION DATE: 12/20/18 AGE OF PATIENT: 58 REFERRING PHYSICIAN: INTERPRETING PHYSICIAN: LARS BOYD MD DATE OF SERVICE: 12/21/2018 High-dose stress-only nuclear stress test. INDICATION: Chest pain, coronary artery disease. PROCEDURE IN DETAIL: The patient was exercised on standard Lexiscan protocol with 32 mCi of sestamibi injected at peak stress. FINDINGS: Gated SPECT reveals a mildly depressed, but preserved ejection fraction of 47% with good wall motioning and thickening and brightening throughout all segments. SPECT imaging Cardiolite was used as myocardial perfusion agent. There is homogeneous uptake throughout all segments with stress only images. OVERALL IMPRESSION: This is a normal stress only nuclear stress test, no evidence of ischemia or previous infarction with an ejection fraction preserved at 47%. TRANSINT:[id number] Voice Confirmation ID: [id number] DOCUMENT ID: [id number] LARS BOYD MD at 1330 CC: [id number] DICTATION DATE: 12/21/18 1544 CHIP APPLYING MACHINE TENDER: 12/22/18 0713 DIS IN 12/21/18 [facility] [address] [place] [address]
--- NOTE | 2018-12-29 13:30 | HP ---
PATIENT: KAREEM PERALTA MEDICAL RECORD: [id number] ACCOUNT: [id number] LOCATION:[address] : 58 ADMISSION DATE: 12/20/18 PCP: MARCELO BOYD HISTORY AND PHYSICAL EXAMINATION DIAGNOSES: 1. Angina. 2. Coronary artery disease. 3. Previous percutaneous transluminal coronary angioplasty stent in April in [place]. 4. Smoking. 5. Chronic obstructive pulmonary disease. 6. Hypertension. 7. Hyperlipidemia. HISTORY OF PRESENT ILLNESS: Mr. Peralta presents with 3 days of increasing episodes of chest discomfort. It is a fairly typical angina with dull aching, a band-like sensation around his chest. It was very similar to his previous angina that he had in April. He underwent PTCA stent when he lived in [place] in April. He had done well until the last 3 days. He as well as noticed increasing shortness of breath to the point where it is difficult for him to even go to the mailbox and come back. With the exertion when going to the mailbox he as well gets the chest pain and chest pressure. It is basically class III angina at this time, associated with increased shortness of breath and dyspnea on exertion. He is on medical therapy with a beta-christina, calcium channel christina and an alpha christina. His heart rates are in the 50s; however, his systolic blood pressure still in the 130-140 range. His EKG is with no acute ST-T abnormalities. Troponin is normal. He continues to have chest pain this morning at a 4/10 level. PHYSICAL EXAMINATION: CONSTITUTIONAL/GENERAL APPEARANCE: Well nourished, well developed, appears stated age. EYES: Lids and conjunctivae noninjected. No discharge. No pallor. ENT: Lips within normal limit. No cyanosis. No pallor. NECK: Carotid arteries, bilateral normal upstroke. No bruits. No thrills. No jugular venous pressure or distention. CERVICAL LYMPH NODES: Nontender. Nonenlarged. THYROID: Not enlarged. No nodules. CARDIOVASCULAR: Precordial exam, nondisplaced. No heaves or pericardial thrills. Rate and rhythm, regular. Heart sounds, normal S1, normal S2. No S3, no gallop, no rub. Systolic murmur, not heard. Diastolic murmur, not heard. RESPIRATORY: Respiratory effort, unlabored. Normal curvature. No thoracic deformity. No chest wall tenderness. Percussion, resonant. Auscultation, clear. No wheezes, no rales, no rhonchi. ABDOMEN: Soft, nondistended, nontender. No abdominal pain, no vomiting and normal appetite. MUSCULOSKELETAL: No joint tenderness, normal gait, normal tone. SKIN: Warm and dry. OVERALL IMPRESSION: Chest pain compatible with angina in a patient with a past history of coronary artery disease, hypertension, hyperlipidemia, smoking, and previous cardiac stenting. He has a high likelihood of recurrent hemodynamically significant coronary artery disease. We will add a long-acting nitrate; however, his EKG is normal and troponin is normal, we will risk HISTORY AND PHYSICAL [id number] KAREEM PERALTA stratify with stress testing and Cardiolite imaging. TRANSINT:[id number] Voice Confirmation ID: [id number] DOCUMENT ID: [id number] LARS BOYD MD at 1330 CC: [id number] DICTATION DATE: 12/21/18 0955 CRIMINAL JUSTICE INSTRUCTOR: 12/21/18 1134 DIS IN 12/21/18 [facility] [address] [place] [address]
== END 2018-12-21 16:47 | disposition home or self-care (01) ==
LOC: D.ER 21:49 → D.M2 23:35 → OBSVTIME 23:35 → D.M2 23:35 → D.SDCHOLD 12-21 15:40 → D.M2 12-21 15:43
PROVIDERS: Family Medicine; ADMIT Internal Medicine Interventional Cardiology; ATTEND Internal Medicine Interventional Cardiology
DX: R07.9 Chest pain, unspecified (principal); I25.119 Atherosclerotic heart disease of native coronary artery with unspecified angina pectoris; J44.9 Chronic obstructive pulmonary disease, unspecified; Z72.0 Tobacco use; I10 Essential (primary) hypertension; E78.5 Hyperlipidemia, unspecified

== ENCOUNTER 2019-09-17 12:54 | Observation (INO) | payer MEDICAID ==
[~2019-09-17] VITALS: Ht 175.3 cm; Wt 105.0 kg
--- NOTE | ~2019-09-17 | HEMODYNAMI ---
PATIENT:KAREEM PERALTA MEDICAL RECORD: [id number] : 58 LOCATION:[facility] D.2118 ADMISSION DATE: 09/17/19 Generatedon:09/18/201911:01 Patient name: KAREEM PERALTA Patient #: [id number] SSN: [id number] : 1960 Date of study: 09/18/2019 Page: Of Hemodynamic Procedure Report Patient Data Patient Demographics Procedure consent was obtained First Name: KAREEM Gender: Male Last Name: KATHRYN : 1960 Middle Initial: R Age: 58 year(s) Patient #: [id number] Race: Unknown SSN: [id number] Additional ID: [id number] Contact details Address: [address] [address] State: [place] City: [place] Zip code: [address] Past Medical History Allergies Allergen Reaction Date Comments Reported Penicillins 05/24/2016 Toradol 05/24/2016 Stadol 05/24/2016 Other 05/24/2016 compazine, reglan, avelox allergy Other 09/18/2019 (AVALOX)PROCHLORPERAZINE/PENICILLIN allergy G/KETOROLAC/METOCLOPRAMIDE/BUTORPHANOL Admission Admission Data Admission Date: 09/17/2019 Admission Time: 16:20 Arrival Date: 09/18/2019 Arrival Time: 0:00 Room #: D.2118 Height (in.): 69 BSA: 2.17 (m2) Height (cm.): 175.26 BMI: 33.23 (kg/m2) Weight (lbs.): 225 Weight (kg.): 102.06 Lab Results Lab Result Date: 09/18/2019 Lab Result Time: 0:00 Biochemistry Name Units Result Min Max BUN mg/dl 27 --(----)-* 7 18 CK-MB ng/ml 2.8 --(---*)-- 0 3.6 Creatinine mg/dl 1.4 --(----)*- 0.6 1.3 eGFR ml/min 55 *-(----)-- 90 120 NONAFRICAN Troponin l ng/ml 0.017 --(-*--)-- 0 0.06 CBC Name Units Result Min Max Hematocrit % 39.1 -*(----)-- 42 54 Hemoglobin g/dl 13.7 --(*---)-- 13.5 17.5 Procedure Procedure Types Cath Procedure Diagnostic Procedure [facility] w/Coronaries Sedation Charges Moderate Sedation up to 15 minutes Procedure Description Procedure Date Procedure Date: 09/18/2019 Procedure Start Time: 10:51 Procedure End Time: 11:00 Procedure Staff Name Function Robel Agee MD Performing Physician Yuridia Shultz RT Monitor Natalia Peguero RN Nurse Shaila Walton RT Scrub Procedure Data Cath Procedure Fluoroscopy Diagnostic fluoroscopy Total fluoroscopy Time: 1.6 time: 1.6 min min Diagnostic fluoroscopy Total fluoroscopy dose: 508 dose: 508 mGy mGy Contrast Material Contrast Material Type Amount (ml) Isovue 300 46 Entry Location Entry Primary Successful Side Size Upsize Upsize Entry Closure Succes sful Closure Location (Fr) 1 (Fr) 2 (Fr) Remarks Device Remarks Femoral Right 5 Fr Exoseal artery Estimated blood loss: 5 ml Diagnostic catheters Device Type Used For End Catheter Placement MULTIPACK JL 4.0 5Fr Left Coronary catheter Angiography MULTIPACK 3DRC 5Fr Right Coronary catheter Angiography MULTIPACK Pigtail 5 Fr LV Angiography catheter Procedure Complications No complications Procedure Medications Medication Administration Route Dosage 0.9% NaCl I.V. 100 ml/hr Oxygen etCO2 Nasal cannula 2 l/min Lidocaine 2% added to field 20 Heparin Flush Bag added to field 2 bags (1000units/500ml NS) Versed I.V. 2 mg Fentanyl I.V. 50 mcg Hemodynamics Rest BSA: 2.17 (m2) HGB: 13.7 (g/dl) O2 Consumption: Estimated: 245.92 (ml/min) O2 Co nsumption indexed: Estimated:113.33 (ml/min/m) Heart Rate: 59 (bpm) Pressure Samples Time Site Value (mmHg) Purpose Heart Use Rate(bpm) 10:55 LV 117/10,18 Snapshot 66 Gradients Valve Time Site Site Mean SEP/DFP Peak To Heart Use 1 2 (mmHg) (sec/min) Peak Rate (mmHg) (bpm) Aortic 10:56 LV AO 63 Snapshots Pre Cath Intra NCS Post Cath Vital Signs Time Heart Resp SPO2 etCO2 NIBP (mmHg) Rhythm Pain Sedation Rate (ipm) (%) (mmHg) Status Level (bpm) 10:39:06 56 15 99 27.6 165/99(115) NSR 0 (11) 10(A) , No pain 10:43:54 59 14 98 32.1 155/73(126) NSR 0 (11) 10(A) , No pain 10:48:33 61 10 98 22.4 148/90(124) NSR 0 (11) 10(A) , No pain 10:53:03 61 10 99 29.9 147/88(123) NSR 0 (11) 10(A) , No pain 10:57:40 62 11 96 34.4 153/84(129) NSR 0 (11) 10(A) , No pain Medications Time Medication Route Dose Verified Delivered Reason Notes Eff ectiveness by by 10:37:38 0.9% NaCl I.V. 100 Robel Vallea used for ml/hr St Ac Peguero procedure MD KAUR 10:37:45 Oxygen etCO2 2 Robel Natalia used for Nasal l/min Cyndie Sudhir procedure cannula MD KAUR 10:37:49 Lidocaine 2% added 20ml Robel Huston for local to vial [facility] anesthetic field MD [place] 10:37:55 Heparin Flush added 2 Robel Steveory used for Bag to bags [facility] procedure (1000units/500ml field MD [place] NS) 10:50:09 Versed I.V. 2 mg [address] for [facility] Ac Peguero sedation MD KAUR 10:50:26 Fentanyl I.V. 50 [address] for mcg [address] Ac Peguero sedation settlement agent Log Time Note 10:21:57 Informed consent obtained and on chart 10:26:10 Lab Result : CK-MB 2.8 ng/ml 10:26:10 Lab Result : Troponin l 0.017 ng/ml 10:26:10 Lab Result : BUN 27 mg/dl 10:26:10 Lab Result : Creatinine 1.4 mg/dl 10:26:10 Lab Result : eGFR NONAFRICAN 55 ml/min 10:26:10 Lab Result : Hematocrit 39.1 % 10:26:10 Lab Result : Hemoglobin 13.7 g/dl 10:26:18 Arrival Date: 09/18/2019 12:00:00 AM 10::29 Patient Height : 69 inches 10:26:40 Patient Weight : 225 lbs 10:26:52 Natalia Peguero RN sent for patient. Start room use. 10:26:54 Time tracking: Regular hours (M-F 7:00 - 5:00) 10:27:01 Plan of Care:Hemodynamics will remain stable., Cardiac rhythm will remain stable., Comfort level will be maintained., Respiratory function will remain adequate., Patient/ family verbilizes understanding of procedure., Procedure tolerated without complication., Recovers from procedure without complications.. 10:27:07 Procedure Status Urgent Heart Cath (IP). 10:29:04 Patient allergic to Other allergy(AVALOX)PROCHLORPERAZINE/PENICILLIN G/KETOROLAC/METOCLOPRAMIDE/BUTORPHANOL 10:29:19 H&P Date Dictated: 09/18/2019 Within 30 days and on chart., ER History o n chart.. 10:33:45 Patient received from Med II to CCL 1 Alert and oriented. Tansferred to table in Supine position. 10:33:47 Warm blankets applied, and leeann hugger turned on for patient comfort. 10:33:48 Correct patient and procedure confirmed by team. 10:33:49 ECG and BP/O2 sat monitors applied to patient. 10:37:28 Vital chart was started 10:37:38 0.9% NaCl 100 ml/hr I.V. was administered by Natalia Peguero RN; used for procedure; Verbal order read back and verified. 10:37:45 Oxygen 2 l/min etCO2 Nasal cannula was administered by Natalia Peguero RN ; used for procedure; Verbal order read back and verified. 10:37:49 Lidocaine 2% 20ml vial added to field was administered by Robel Agee MD; for local anesthetic; Verbal order read back and verified. 10:37:55 Heparin Flush Bag (1000units/500ml NS) 2 bags added to field was administered by Robel Agee MD; used for procedure; Verbal order read back and verified. 10:45:51 Baseline sample Acquired. 10:45:57 Rhythm: sinus rhythm 10:45:58 Full Disclosure recording started 10:46:00 - 10:46:00 Pre-procedure instructions explained to patient. 10:46:01 Pre-op teaching completed and patient verbalized understanding. 10:46:17 Family unavailable. 10:46:20 Patient NPO since Midnight. 10:46:25 Is the patient allergic to Iodine/contrast media? No. 10:46:28 Was the patient premedicated? Yes 10:46:31 Is patient on blood thinner?Yes 10:46:36 ACC The patient was administered the following blood thiners within the last 24 hours: ACCPlavix 10:47:07 Patient diabetic? No. 10:47:13 ----Pre-sedation anethsthesia assessment.---- 10:47:18 Previous problem with sedation/anesthesia? No ? 10:47:20 Snore? Yes 10:47:24 Sleep apnea? No 10:47:26 Deviated septum? Unknown 10:47:30 Opens mouth fully? Yes 10:47:32 Sticks out tongue? Yes 10:47:41 Airway obstruction? Yes COPD/LUNG CA 10:47:45 Dentures? No ? 10:47:51 Pre procedure: right dorsailis pedis pulse 1+ Palpable, but thready & weak; easily obliterated 10:48:07 IV patent on arrival in right hand, right forearm with 0.9% NaCl at O . 10:48:20 Lab results completed and on chart. 10:48:24 Stress Test: no; abnormal ? 10:48:30 Right groin area was prepped with chlora-prep and draped in sterile fashion 10:48:35 Alarms reviewed by Sreedhar Acosta 10:48:36 Sharps counted by scrub and verified by RStephanieN. 10:48:38 Physician arrived 10:48:39 --------ALL STOP TIME OUT------ 10:48:40 Final Timeout: patient, procedure, and site verified with staff and physician. All members of the team are in agreement. 10:48:45 Right groin site verified by team. 10:48:50 Fire Safety Assessment: A--An alcohol-based skin anteseptic being used preoperatively., C--Open oxygen or nitrous oxide is being used., D--An ESU, laser, or fiber-optic light is being used. 10:48:54 Physical assessment completed. ASA score P 2 - A patient with mild systemic disease as per Robel Agee MD. 10:48:59 3a) 45-59 Moderately reduced kidney function. 10:49:04 Maximum allowable contrast dose (3.7 X eGFR X 0.75)152 ml. 10:50:09 Versed 2 mg I.V. was administered by Natalia Peguero RN; for sedation; Verbal order read back and verified. 10:50:26 Fentanyl 50 mcg I.V. was administered by Natalia Peguero RN; for sedation ; Verbal order read back and verified. 10:51:01 Sedation plan: IV Moderate Sedation Medication:Versed, Fentanyl 10:51:09 Use device set Femoral Dx 10:51:12 ACIST Syringe (12355) opened to sterile field. 10:51:12 Bag Decanter (2002S) opened to sterile field. 10:51:13 Medline Cath Pack ([id number]) opened to sterile field. 10:51:15 ACIST Hand Control (91722) opened to sterile field. 10:51:15 ACIST Manifold (81726) opened to sterile field. 10:51:17 DIAGNOSTIC Multipack 5Fr catheter set (CV6738) opened to sterile field. 10:51:17 Tegaderm 4 x 4 (1626W) opened to sterile field. 10:51:20 SHEATH 5FR Gove (WIB686) opened to sterile field. 10:51:20 EMERALD Guide Wire (965-503) opened to sterile field. 10:51:28 Procedure started. 10:51:33 Local anesthetic to right femoral artery with Lidocaine 2% by Robel Shen MD.INITIAL ACCESS ONLY 10:51:46 A 5 Fr sheath was inserted into the Right Femoral artery 10:51:53 A MULTIPACK JL 4.0 5Fr catheter was advanced over the wire and used for Left Coronary Angiography. 10:52:47 LCA angiography performed. 10:52:51 Injector settings: Ml/sec: 3, Volume: 6, 10:52:52 Catheter removed. 10:53:04 Zero performed for pressure channel P1 10:53:16 A MULTIPACK 3DRC 5Fr catheter was advanced over the wire and used for Right Coronary Angiography. 10:53:38 Risk of Mortality: 0.3 10:53:42 Risk of blood transfusion: 0.1 10:53:46 Risk of MARGIE: 1.4 10:53:57 RCA angiography performed. 10:54:01 Injector settings: Ml/sec: 3, Volume: 6, 10:54:39 Catheter removed. 10:55:14 A MULTIPACK Pigtail 5 Fr catheter was advanced over the wire and used for LV Angiography. 10:55:20 Injector settings: Ml/sec: 5, Volume: 15, 10:55:51 LV gram done using BRUCE 10:56:14 EF : 55 % 10:56:16 LV hemodynamics recorded. 10:56:27 Catheter removed. 10:56:30 EXOSEAL 5Fr (EX500) opened to sterile field. 10:56:53 Sheath removed intact; hemostasis achieved with Exoseal to the Right Femoral artery. 10:57:06 Procedure ended.(Physican Out) 10:57:14 Contrast amount:Isovue 300 46ml. 10:57:24 Fluoroscopy time 01.60 minutes. 10:57:30 Fluoroscopy dose: 508 mGy 10:57:30 Flurop Dose total: 508 10:57:39 Dose Area Product 98764 mGy/cm. 10:57:43 Maximum allowable dose exceeded? No. 10:57:45 Sharps counted by scrub and verified by R.N. 10:57:48 Insertion/operative site no bleeding no hematoma. 10:57:53 Post-op/insertion site Right Femoral artery dressed using a 4 x 4 and Tegaderm. 10:57:59 Post-procedure physical assessment completed. ASA score P 2 - A patient with mild systemic disease as per Robel Agee MD. 10:58:04 Post procedure rhythm: unchanged. 10:58:08 Estimated blood loss: 5 ml 10:58:10 Post procedure instruction explained to patient.Patient verbalizes understanding. 10:58:12 Patient needs reinforcement of post procedure teaching. 10:58:37 Procedure type changed to Cath procedure, Diagnostic procedure, LHC, LH C w/Coronaries, Sedation Charges, Moderate Sedation up to 15 minutes 10:58:39 Procedure and supply charges have been captured, reviewed, submitted an d are correct. 10:59:31 Procedure Complication : No complications 10:59:35 Vital chart was stopped 10:59:41 [facility] Findings: mild to moderate CAD (<70%) 10:59:43 Operative report dictated upon procedure completion. 10:59:44 See physician's report for complete and final results. 10:59:47 Report given to [facility]. 11:00:05 Patient transfered to [facility] with Bed. 11:00:09 Procedure ended. 11:00:09 Full Disclosure recording stopped 11:00:14 End room use (Document Last) Device Usage Item Name Manufacture Quantity Catalog Hospital Part Current Minimal L ot# / Number Charge Number Stock Stock Serial# Code ACIST Acist 1 14077 742415 [id number] 140380 20 Syringe Medical (09113) Systems Inc Bag Microtek 1 2001S 523525 87270 186969 5 Decanter Medical Inc. () Medline Medline 1 [id number] [id number] [id number] 962805 5 Cath Pack ([id number]) ACIST Hand Acist 1 44632 271862 735324 382238 5 Control Medical (66185) Systems Inc ACIST Acist 1 38330 729240 327534 897860 5 Manifold Medical (00876) Systems Inc DIAGNOSTIC Cardinal 1 [id number] 073536 92562 929387 30 Multipack Health 5Fr catheter set (LA8234) Tegaderm 4 3M 1 1626W 552503 861362 952726 5 x 4 (1626W) SHEATH 5FR Terumo 1 CHO090 429875 773350 552393 5 Gove (DMJ782) EMERALD Cardinal 1 502-455 722360 689293 829548 5 Guide Wire Health (502-455) MULTIPACK Cardinal 1 979731 5 JL 4.0 5Fr Health catheter MULTIPACK Cardinal 1 553467 5 3DRC 5Fr Health catheter MULTIPACK Cardinal 1 768573 5 Pigtail 5 Health Fr catheter EXOSEAL 5Fr Cardinal 1 EX500 790473 128675 400728 10 (EX500) Health Signature Audit [place] Stage Time Signature Unsigned Intra-Procedure 09/18/2019 Yuridia 11:00:42 AM Lexii RT(R) (CV) Intra-Procedure 09/18/2019 Natalia Peguero 11:01:19 AM RN Intra-Procedure 09/18/2019 Robel Mathur 11:01:51 AM Ac [place] [id number] [place] [address]
[~2019-09-17 12:54] MED LIST changes: +BAYER CHEWABLE81 MG PO; +NEURONTIN600 MG PO; +PLAVIX75 MG PO; +TOPROL XL25 MG; +ZOLOFT100 MG PO
[2019-09-17 13:20] LABS: BASOPHILS 0 % (0-2); EOSINOPHILS 1.3 % (0-7); HEMATOCRIT 42.9 % (42.0-54.0); HEMOGLOBIN 15.1 g/dL (13.5-17.5); IMMATURE GRANULOCYTES 0.3 % (0-5); LYMPHOCYTES 22.8 % (15-50); MCH 34.3 pg (26.0-34.0); MCHC 35.2 g/dL (31.0-37.0); MCV 97.5 fL (80.0-100.0); MEAN PLATELET VOLUME 10.4 fL (7.4-10.4); MONOCYTES 6.3 % (2-11); NEUTROPHILS 69.3 % (40-80); PLATELET COUNT 162 10x3/uL (130-400); RDW 12.9 % (11.5-14.5); WBC 7.8 10x3/uL (4.8-10.8)
[2019-09-17 13:28] LABS: APTT 27.5 SECONDS (22.8-39.4); INR 1.01 (0.85-1.17); PROTIME 13.3 SECONDS (11.6-15.0)
[2019-09-17 13:35] LABS: CALC OSMOLALITY 275 mosm/kg (275-300); CARBON DIOXIDE 27.7 mmol/L (21.0-32.0); CHLORIDE - SERUM 102 mmol/L (98-107); CREATININE - SERUM 1.5 mg/dL (0.6-1.3); GLUCOSE 111 mg/dL (74-106); POTASSIUM - SERUM 3.7 mmol/L (3.5-5.1); SODIUM 137 mmol/L (136-145); UREA NITROGEN 14 mg/dL (7-18); eGFR NON AFRICAN AMERICAN 51 mL/min (90-120)
[2019-09-17 13:52] LABS: ALBUMIN 3.8 g/dL (3.4-5.0); ALKALINE PHOSPHATASE 60 U/L (30-120); ALT (SGPT) 15 U/L (10-68); BILIRUBIN - TOTAL 0.41 mg/dL (0.2-1.3); CKMB 1.7 U/L (0.0-3.6); CREATINE KINASE 62 UL (21-232); MAGNESIUM - SERUM 1.7 mg/dL (1.8-2.4); PROTEIN - SERUM 7.1 g/dL (6.4-8.2)
[2019-09-17 13:57] LABS: TROPONIN-I < 0.017 ng/mL (0.000-0.060)
[2019-09-17 14:05] VITALS: BP 140/91
[2019-09-17 14:56] VITALS: BP 125/72
--- NOTE | 2019-09-17 17:03 | NUR ---
TRANSFER FROM ER BY STRETCHER. CALL LIGHT IN REACH. WILL CONT. PLAN OF CARE.
[2019-09-17] MEDS ORDERED: IMODIUM2 MG PO (17:13)
[2019-09-17 17:19] VITALS: BP 125/81; Ht 175.3 cm; Wt 105.0 kg
[2019-09-17 19:05] LABS: CKMB 1.3 U/L (0.0-3.6); CREATINE KINASE 49 UL (21-232)
[2019-09-17 19:11] LABS: TROPONIN-I < 0.017 ng/mL (0.000-0.060)
--- NOTE | 2019-09-17 19:55 | NUR ---
RECIEVED UP IN BED WITH LIGHTS OFF AND EYES OPEN. ALERT AND ORIENTED X4. UP AD TYREE WITH CRUTCHES. O2@ 2 LITERS PER N/C. IV TO RT FA SL. TELEMETRY IN PLACE. DENIES ANY NEEDS AT THIS TIME.
[2019-09-17 20:30] VITALS: BP 97/54
[2019-09-18 00:17] VITALS: BP 136/84
[2019-09-18 01:54] LABS: CREATINE KINASE 53 UL (21-232)
[2019-09-18 01:56] LABS: TROPONIN-I < 0.017 ng/mL (0.000-0.060)
--- NOTE | 2019-09-18 01:57 | NUR ---
PT HAS CALL THIS NURSE IN THE ROOM NUMEROUS TIMES ASKING FOR PAIN MEDICATION. EVEN AFTER HE RECIEVES IT. EYES CLOSED HARD TO AROUSE. NO OBVIOUS S/S OF DISTRESS OBSERVED. EXPLAINED IT IS EVERY 4 HOURS. B/P WAS TOO LOW FOR PAIN MEDICATION. NOW HE KEEPS REQUESTING HIS B/P BE TAKEN SO HE CAN HAVE PAIN MEDICATION. HE IS AWARE OF WHAT TIME HE CAN HAVE HIS MEDS.
[2019-09-18 04:30] VITALS: BP 132/74
--- NOTE | 2019-09-18 07:15 | NUR ---
RECEIVED PT IN BED EYES CLOSED RESP UNLABORED SKIN W/D COLOR WNL NAD NOTED
[2019-09-18 08:26] LABS: BASOPHILS 0 % (0-2); EOSINOPHILS 0 % (0-7); HEMATOCRIT 39.1 % (42.0-54.0); HEMOGLOBIN 13.7 g/dL (13.5-17.5); IMMATURE GRANULOCYTES 0.2 % (0-5); LYMPHOCYTES 8.2 % (15-50); MCH 34.2 pg (26.0-34.0); MCV 97.5 fL (80.0-100.0); MEAN PLATELET VOLUME 10.5 fL (7.4-10.4); MONOCYTES 1.7 % (2-11); NEUTROPHILS 89.9 % (40-80); PLATELET COUNT 138 10x3/uL (130-400); RBC 4.01 10x6/uL (4.20-6.10); RDW 12.7 % (11.5-14.5); WBC 9.4 10x3/uL (4.8-10.8)
[2019-09-18 08:36] LABS: ALBUMIN 3.4 g/dL (3.4-5.0); ALKALINE PHOSPHATASE 57 U/L (30-120); ALT (SGPT) 14 U/L (10-68); BILIRUBIN - TOTAL 0.29 mg/dL (0.2-1.3); CALCIUM 9.1 mg/dL (8.5-10.1); CARBON DIOXIDE 28.5 mmol/L (21.0-32.0); CHLORIDE - SERUM 104 mmol/L (98-107); CKMB 2.8 U/L (0.0-3.6); CREATINE KINASE 44 UL (21-232); CREATININE - SERUM 1.4 mg/dL (0.6-1.3); PROTEIN - SERUM 6.5 g/dL (6.4-8.2); SODIUM 138 mmol/L (136-145); TROPONIN-I < 0.017 ng/mL (0.000-0.060); eGFR NON AFRICAN AMERICAN 55 mL/min (90-120)
[2019-09-18 08:38] LABS: CALC OSMOLALITY 284 mosm/kg (275-300); GLUCOSE 172 mg/dL (74-106); POTASSIUM - SERUM 5.3 mmol/L (3.5-5.1); UREA NITROGEN 27 mg/dL (7-18)
[2019-09-18 08:45] LABS: CHOL - HDL RATIO 5.3 ratio (2.3-4.9); LDL-HDL RATIO 3.6 ratio (1.5-3.5)
[2019-09-18 09:00] VITALS: BP 141/76
[2019-09-18 11:00] VITALS: BP 161/79
[2019-09-18] MEDS ORDERED: PREDNISONE5 MG PO (14:07)
[2019-09-18 15:00] VITALS: BP 130/80
--- NOTE | 2019-09-18 20:29 | NUR ---
HS MEDS GIVEN WITH FRESH ICE WATER. DENIES PAIN OR NEEDS AT THIS TIME.
[2019-09-18 21:45] VITALS: BP 130/62
[2019-09-19 00:06] VITALS: BP 116/65
--- NOTE | 2019-09-19 02:19 | NUR ---
MORPHINE GIVEN AT PT REQUEST FOR C/O PAIN.
[2019-09-19 04:11] VITALS: BP 111/52
--- NOTE | 2019-09-19 04:18 | NUR ---
OUTSIDE COLLECTOR AT BED SIDE FOR VITALS, PT ASKING FOR PAIN MEDS. INFORMED PT HE HAD HIS MORHINE 2 HOURS AGO AND ITS ORDERED EVERY 4 HOURS.
[2019-09-19 05:54] LABS: BASOPHILS 0 % (0-2); EOSINOPHILS 0 % (0-7); HEMATOCRIT 38.6 % (42.0-54.0); HEMOGLOBIN 13.5 g/dL (13.5-17.5); IMMATURE GRANULOCYTES 0.3 % (0-5); LYMPHOCYTES 3.5 % (15-50); MCH 34.3 pg (26.0-34.0); MONOCYTES 3.8 % (2-11); NEUTROPHILS 92.4 % (40-80); PLATELET COUNT 156 10x3/uL (130-400); RBC 3.94 10x6/uL (4.20-6.10); RDW 12.8 % (11.5-14.5)
[2019-09-19 06:24] LABS: ALBUMIN 3.3 g/dL (3.4-5.0); BILIRUBIN - TOTAL 0.24 mg/dL (0.2-1.3); CARBON DIOXIDE 27.4 mmol/L (21.0-32.0); CREATININE - SERUM 1.4 mg/dL (0.6-1.3); MAGNESIUM - SERUM 1.9 mg/dL (1.8-2.4); PROTEIN - SERUM 6.2 g/dL (6.4-8.2)
--- NOTE | 2019-09-19 06:25 | NUR ---
MORPHINE 4 MG GIVEN AT PTS INSISTANCE. EXPLAINED TO PT THAT HE WILL BE GOING HOME THIS MORNING, AND CANT DRIVE HIMSELF FOR 2-4 HOURS AFTER RECIEVING NARCOTICS, PT STATED THAT HE UNDERSTOOD AND STILL NEEDED HIS PAIN SHOT, INFORMED PT THAT THIS WILL BE THE LAST TIME HE CAN HAVE MORHINE BECAUSE HE HAS DISCHARGE ORDERS.
[2019-09-19 06:28] LABS: POTASSIUM - SERUM 4.4 mmol/L (3.5-5.1)
--- NOTE | 2019-09-19 08:28 | NUR ---
IV AND TELEMETRY DCD. DC PLANS GIVEN. UNDAERSTANDING VOICED. ESCORTED TO CAR BY W/C.
--- NOTE | 2019-09-19 15:43 | OP ---
PATIENT NAME: KAREEM PERALTA MEDICAL RECORD: [id number] :58 LOCATION:D.M2 D.2118 ADMISSION DATE:09/17/19 SURGEON: JAYESH NAILS MD DATE OF OPERATION: 09/18/2019 PROCEDURE: Left heart catheterization, selective coronary angiography, right femoral artery approach. CATHETERS: A 5-Armenian sheath, 5/4 left and right Lobo, 5/4 pig. The procedure was well tolerated. The patient returned to land, sheath removed. ExoSeal device placed. FINDINGS: Left ventriculography in 30-degree BRUCE view: Normal wall motion. Normal systolic function. CORONARY ANATOMY: LEFT MAIN: Left main is free of disease. LAD: Free of disease in the diagonal system. CIRCUMFLEX: Free of disease. RIGHT CORONARY ARTERY: Area of previous stent is widely patent. No evidence of restenosis. No progression of [place] disease. IMPRESSION: Patent stents. No progression of [place] disease. Continue risk factor modification and medical management. TRANSINT:[id number] Voice Confirmation ID: [id number] DOCUMENT ID: [id number] JAYESH NAILS MD at 1543 CC: [id number] DICTATION DATE: 09/18/19 1107 SECURITY SYSTEM INSTALLER: 09/18/19 2135 DIS IN 09/19/19 [facility] [address] [place] [address]
--- NOTE | 2019-09-19 15:43 | CN ---
PATIENT NAME:KAREEM PERALTA MEDICAL RECORD: [id number] : 58 LOCATION:D. D.2118 ADMIT DATE: 09/17/19 ACCOUNT: [id number] CONSULTING PHYSICIAN: JAYESH NAILS MD REFERRING PHYSICIAN: ROHIT BADILLO MD DATE OF CONSULTATION: 09/18/2019 HISTORY OF PRESENT ILLNESS: A 58-year-old gentleman with a known history of coronary artery disease, status post myocardial infarction, subsequent stenting, last approximately 3 years ago, has been doing fairly well until yesterday at [facility], he had onset of his typical angina with chest tightness, pressure radiating to the left jaw and left arm. He has actually been doing fairly well prior to this. Unfortunately, he continues to smoke, has been trying to walk some, has some baseline dyspnea, although this is probably multifactorial and has not been increasing as of late. We are asked to see him concerning his cardiovascular status. PAST MEDICAL HISTORY: Includes: 1. History of coronary artery disease as described above. 2. Obstructive pulmonary disease. 3. Hypertension. 4. Hyperlipidemia. 5. Seizure disorder. 6. Rectal cancer. 7. Gastroesophageal reflux disease. MEDICATIONS: Include Carafate 1 gram a.c. and at bedtime, aspirin 81 every day, Neurontin 600 t.i.d., Depakote 1 gram bedtime and 500 in the a.m., Xanax as needed, amlodipine 5 mg p.o. daily, Plavix 75 every day, albuterol 2 puffs q.4 p.r.n. SOCIAL HISTORY: Smokes a little more than a pack a day, nondrinker. Easily takes care of all his ADLs, does try to walk on a regular basis. ALLERGIES: INCLUDE PENICILLIN, COMPAZINE, TORADOL, REGLAN, STADOL. REVIEW OF SYSTEMS: The patient reports easy bruising but reports no swollen glands. The patient reports no fever, no night sweats, no significant weight gain, no significant weight loss. No significant exercise tolerance. The patient reports no dry eyes, no irritation, no vision change. Patient reports no difficulty hearing and no ear pain. Patient reports no frequent nose bleeds or nose and sinus problems. Patient reports on arm pain on exertion. No shortness of breath while lying down. No history of heart murmur. Patient reports no cough, no wheezing or coughing up blood. Patient reports no abdominal pain, no vomiting. Normal appetite. No diarrhea and not vomiting blood. No nausea and no constipation. Patient reports no incontinence. No difficulty urinating. No hematuria. No increased frequency. Patient reports no muscle aches. No weakness, no arthralgias, no back pain. No swelling of the extremities. Patient reports no abnormal mole, no jaundice, no rashes. Reports no loss of consciousness. No weakness and no numbness. No seizures, dizziness, or headaches. The patient reports no depression, no sleep disturbance, feeling safe in a relationship and no alcohol abuse. Patient reports on fatigue. Reports no runny nose or sinus pressure. No itching, no hives, and no frequent sneezing. CONSULT REPORT [id number] KAREEM PERALTA PHYSICAL EXAMINATION: GENERAL: Pleasant gentleman, in no acute distress, appears stated age. VITAL SIGNS: Blood pressure 132/74, pulse 62 and regular. HEENT: Normocephalic, atraumatic. NECK: No JVD or bruit. HEART: Regular, II/ systolic ejection murmur. LUNGS: Good air excursion. ABDOMEN: Soft, nontender. EXTREMITIES: Pulses 2+. There is no edema. DIAGNOSTIC DATA: EKG shows nonspecific ST-T changes. IMPRESSION: Acute coronary syndrome, known history of coronary artery disease. PLAN: For angiography, intervention based on above. TRANSINT:[id number] Voice Confirmation ID: [id number] DOCUMENT ID: [id number] JAYESH NAILS MD at 1543 CC: [id number] DICTATION DATE: 09/18/19 08 [employer] SUPERVISOR: 09/18/19 1542 DIS IN 09/19/19 [facility] [address] [place] [address]
== END 2019-09-19 08:33 | disposition home or self-care (01) ==
LOC: D.ER 12:54 → D.M2 16:20 → OBSVTIME 16:20 → D.M2 09-19 08:33
PROVIDERS: Family Medicine; Internal Medicine Interventional Cardiology; ADMIT Family Medicine; ATTEND Family Medicine
DX: I25.110 Atherosclerotic heart disease of native coronary artery with unstable angina pectoris (principal); I24.9 Acute ischemic heart disease, unspecified; I10 Essential (primary) hypertension; E78.5 Hyperlipidemia, unspecified; K21.9 Gastro-esophageal reflux disease without esophagitis; G40.909 Epilepsy, unspecified, not intractable, without status epilepticus; C20 Malignant neoplasm of rectum; F17.200 Nicotine dependence, unspecified, uncomplicated; J44.1 Chronic obstructive pulmonary disease with (acute) exacerbation; G62.9 Polyneuropathy, unspecified; N17.9 Acute kidney failure, unspecified